=== PATIENT | male | born 1935 | race Caucasian/White ===

== ENCOUNTER → 2017-10-11 09:23 | Outpatient (CLI) | payer BC, SELFPAY ==
[2017-10-11 10:08] LABS: Hemoglobin A1C% w Est Avg Glu 6.1 % (4.0-6.0)
== END ==
PROVIDERS: PCP Family Medicine; Visit Provider Family Medicine
DX: R73.9 Hyperglycemia, unspecified (principal)
CPT/HCPCS: 36415; 83036

== ENCOUNTER → 2018-01-26 11:58 | Outpatient (CLI) | payer BC, SELFPAY ==
--- NOTE | 2018-01-26 11:59 | DI.RAD.S_ITS ---
PROCEDURE: XR KNEE RT 3V INDICATIONS: ant knee pain TECHNIQUE: 3 views of the knee were acquired. COMPARISON: None. FINDINGS: Bones: No fractures or dislocations. No suspicious bony lesions. Mild medial joint space narrowing, diffuse degenerative spurring and subchondral sclerosis. Subcentimeter loose body projecting in the posterior joint space. Soft tissues: Small joint effusion. No suspicious soft tissue calcifications. Scattered vascular calcifications. IMPRESSION: Mild right knee joint degeneration, most pronounced in the medial compartment. Dictated by: Mark Colby M.D. on 01/26/2018 at 13:01 Approved by: Mark Colby M.D. on 01/26/2018 at 13:05
== END ==
PROVIDERS: Family Provider Family Medicine; PCP Family Medicine; Visit Provider Family Medicine
DX: M25.561 Pain in right knee (principal); M17.11 Unilateral primary osteoarthritis, right knee
CPT/HCPCS: 73562

== ENCOUNTER → 2019-07-23 07:42 | Outpatient (CLI) | payer BC, SELFPAY ==
[2019-07-23 08:08] LABS: Add Manual Diff / Slide Review NO; Basophils Absolute Auto 100 /uL (0-100); Eosinophils Absolute Auto 200 /uL (0-450); Eosinophils Percent Auto 2.3 % (2-4); Hematocrit 45.6 % (41-53); Hemoglobin 15.9 g/dL (13.5-17.5); Lymphocytes Absolute Auto 1700 /uL (1100-4500); Lymphocytes Percent Auto 21.8 % (25-40); Mean Corpuscular HGB Conc 34.9 % (30-36); Mean Corpuscular Hemoglobin 31.8 PG (26-34); Mean Corpuscular Volume 91.1 fL (80-100); Monocytes Absolute Auto 600 /uL (0-900); Neutrophils Absolute Auto 5100 /uL (1500-7000); Neutrophils Percent Auto 66.9 % (50-75); Platelet Count 234 X10^3/uL (150-400); Red Blood Cell Count 5.01 X10^6/uL (4.5-5.9); Red Cell Distribution Width 12.9 % (11.6-14.8); White Blood Cell Count 7.6 X10^3/uL (4.5-11.0)
[2019-07-23 08:21] LABS: Alanine Aminotransferase 21 IU/L (<50); Albumin 4.2 g/dL (3.5-5.0); Albumin Globulin Ratio 1.4 (1.0-2.8); Alkaline Phosphatase 60 U/L (38-126); Aspartate Aminotransferase 31 IU/L (17-59); BUN Creatinine Ratio 27.2 (6-22); Bilirubin Total 0.8 mg/dL (0.2-1.3); Blood Urea Nitrogen 22 mg/dL (9-20); Calcium 9.6 mg/dL (8.4-10.2); Carbon Dioxide 32 mmol/L (22-32); Chloride 100 mmol/L (98-107); Cholesterol 166 mg/dL (140-199); Estimated Glomerular Filt Rate > 60.0 mL/min (>60); Globulin 3.1 g/dL (1.7-4.1); Glucose 159 mg/dL (80-110); HDL Cholesterol 40 mg/dL (40-60); HEMOLYSIS < 15 (0-50); LDL Cholesterol Calculated 107 mg/dL (<100); Sodium 140 mmol/L (137-145); Total Protein 7.3 g/dL (6.3-8.2); Triglycerides 96 mg/dL (35-150); Uric Acid 7.8 mg/dL (3.5-8.5)
[2019-07-23 08:26] LABS: Hemoglobin A1C% w Est Avg Glu 6.9 % (4.0-6.0)
[2019-07-23 08:58] LABS: Thyroid Stimulating Hormone 2.82 uIU/mL (0.47-4.68)
== END ==
PROVIDERS: Family Provider Family Medicine; PCP Family Medicine; Referring Provider Family Medicine; Visit Provider Family Medicine
DX: E11.9 Type 2 diabetes mellitus without complications (principal)
CPT/HCPCS: 36415; 80053; 80061; 83036; 84443; 84550; 85025

== ENCOUNTER → 2019-09-23 07:03 | Outpatient (CLI) | payer BC, SELFPAY ==
[2019-09-23 07:47] LABS: Hemoglobin A1C% w Est Avg Glu 6.5 % (4.0-6.0)
== END ==
PROVIDERS: Family Provider Family Medicine; PCP Family Medicine; Referring Provider Family Medicine; Visit Provider Family Medicine
DX: E11.9 Type 2 diabetes mellitus without complications (principal); R73.09 Other abnormal glucose
CPT/HCPCS: 36415; 83036

== ENCOUNTER → 2019-11-25 07:14 | Outpatient (CLI) | payer BC, SELFPAY ==
[2019-11-25 08:23] LABS: Hemoglobin A1C% w Est Avg Glu 6.2 % (4.0-6.0)
== END ==
PROVIDERS: Family Provider Family Medicine; PCP Family Medicine; Referring Provider Family Medicine; Visit Provider Family Medicine
DX: R89.9 Unspecified abnormal finding in specimens from other organs, systems and tissues (principal)
CPT/HCPCS: 36415; 83036

== ENCOUNTER → 2020-01-10 08:29 | Outpatient (CLI) | payer BC, SELFPAY ==
--- NOTE | 2020-01-10 08:31 | DI.MRI.S_ITS ---
PROCEDURE: MR BRAIN (IAC) WWO CON INDICATIONS: Unspecified sensorineural hearing loss TECHNIQUE: Noncontrast sagittal T1 spin echo, axial FLAIR, axial gradient echo, axial diffusion and ADC through the brain. Axial thin-slice 3D CISS, coronal TruFISP, axial T1 spin echo with fat saturation through the internal auditory canals. After the administration of contrast, thin slice axial and coronal T1 spin echo with fat saturation through the internal auditory canals, and axial T1 spin echo with fat saturation through the brain. COMPARISON: None. FINDINGS: Image quality: Excellent. Cerebellopontine angles: No cerebellopontine angle masses. Inner ear structures appear normally formed. No suspicious enhancement in the internal auditory canal or along the course of the 7th cranial nerve. CSF spaces: Ventricles are normal in size and shape. No extra-axial fluid collections. Basal cisterns are patent. Brain: Moderate global cerebral volume loss and advanced chronic microvascular ischemic change. No intracranial bleeds or mass effects. Merritt-white matter interface is intact. No abnormal intracranial enhancement. Diffusion weighted images demonstrate no acute ischemic insults. Brainstem appears normal. Normal intravascular flow voids are present. Skull and face: Calvarial marrow signal is normal. Orbits appear normal. Sinuses: Sinuses and mastoids are clear. IMPRESSION: No findings to explain hearing loss. Specifically, no cerebellopontine angle or internal auditory canal mass. Normal MR appearance of the inner ear structures. No siderosis. Global cerebral volume loss and chronic microvascular ischemic changes, both advanced. Dictated by: Brendon Barnes M.D. on 01/10/2020 at 9:38 Approved by: Brendon Barnes M.D. on 01/10/2020 at 9:41
== END ==
PROVIDERS: Family Provider Family Medicine; PCP Family Medicine; Referring Provider Otolaryngology; Visit Provider Otolaryngology
DX: H90.5 Unspecified sensorineural hearing loss (principal); H93.13 Tinnitus, bilateral
CPT/HCPCS: 70553

== ENCOUNTER → 2020-04-10 07:06 | Outpatient (CLI) | payer BC, SELFPAY ==
[2020-04-10 07:41] LABS: Hemoglobin A1C% w Est Avg Glu 6.4 % (4.0-6.0)
[2020-04-10 08:01] LABS: Alanine Aminotransferase 19 IU/L (<50); Albumin 3.7 g/dL (3.5-5.0); Albumin Globulin Ratio 1.5 (1.0-2.8); Alkaline Phosphatase 59 U/L (38-126); Aspartate Aminotransferase 33 IU/L (17-59); BUN Creatinine Ratio 21.4 (6-22); Bilirubin Total 0.6 mg/dL (0.2-1.3); Blood Urea Nitrogen 15 mg/dL (9-20); Calcium 9.1 mg/dL (8.4-10.2); Carbon Dioxide 31 mmol/L (22-32); Chloride 102 mmol/L (98-107); Cholesterol 167 mg/dL (140-199); Estimated Glomerular Filt Rate > 60.0 mL/min (>60); Globulin 2.5 g/dL (1.7-4.1); Glucose 129 mg/dL (80-110); HDL Cholesterol 53 mg/dL (40-60); HEMOLYSIS < 15 (0-50); LDL Cholesterol Calculated 92 mg/dL (<100); Potassium 3.4 mmol/L (3.4-5.1); Sodium 136 mmol/L (137-145); Total Protein 6.2 g/dL (6.3-8.2); Triglycerides 109 mg/dL (35-150)
[2020-04-10 08:10] LABS: Creatinine Urine Random 115.5 mg/dL
[2020-04-10 08:14] LABS: Microalbumi Creatinin Ratio Ur 25.1 ug/mg CR (<30); Microalbumin Urine Random 2.9 mg/dL (0-1.6)
== END ==
PROVIDERS: Family Provider Family Medicine; PCP Family Medicine; Referring Provider Family Medicine; Visit Provider Family Medicine
DX: E11.9 Type 2 diabetes mellitus without complications (principal); I10 Essential (primary) hypertension; Z13.220 Encounter for screening for lipoid disorders
CPT/HCPCS: 36415; 80053; 80061; 82043; 82570; 83036

== ENCOUNTER → 2020-04-24 12:23 | Outpatient (CLI) | payer BC, SELFPAY ==
[2020-04-24] MEDS: COVID-19 VACC, Ad26(JANSSEN)/PF 0.5 ML IM (12:46)
== END ==
PROVIDERS: Family Provider Family Medicine; PCP Family Medicine; Visit Provider Internal Medicine
DX: Z23 Encounter for immunization (principal)
CPT/HCPCS: 0031A; 91303

== ENCOUNTER 2020-08-30 13:13 | Inpatient (IN) | payer BC, MEDICARE, SELFPAY ==
[2020-08-30] VITALS (10 sets, daily range): BP systolic 138–201; BP diastolic 60–93; PULSE 69–89; RESP 12–23; TEMP 36.2–36.8; O2SAT 93–98; BMI 27.1
--- NOTE | 2020-08-30 13:44 | ED_ITS ---
HPI - General Adult General Chief complaint: Abdominal Pain Stated complaint: N/V/D for 5 days. Sent by [facility] Time Seen by Provider: 08/30/20 13:34 Source: patient History of Present Illness HPI narrative: Patient is an 84-year-old male who is sent over from the walk-in clinic for evaluation of approximately 5 days of nausea vomiting and diarrhea. He states that he has been vomiting at least 1 time a day for the past couple days. Has had some lower abdominal discomfort that seems to have improved. Is also having some diarrhea. No recent antibiotics. No recent travel. No prior abdominal surgeries. No chest pain. No shortness of breath. Has not tried a nything for symptoms prior to arrival. Has also had a decreased appetite. No fevers Related Data Home Medications Medication Instructions Recorded Confirmed turmeric PO 01/20/20 04/15/20 Previous Rx's Medication Instructions Recorded triamterene 37.5 1 tab PO DAILY #90 tab 04/17/20 mg-hydrochlorothiazide 25 mg tablet Allergies Allergy/AdvReac Type Severity Reaction Status Date / Time Penicillins [PENICILLINS] Allergy Severe Hives Verified 08/30/20 13:26 Review of Systems Constitutional Constitutional: Denies fever(s) Eyes Eyes: Reports system reviewed and no additional complaints, except as documented Cardiovascular Cardiovascular: Reports system reviewed and no additional complaints, except as documented Respiratory Respiratory: Reports system reviewed and no additional complaints, except as documented Gastrointestinal Gastrointestinal: Reports as per HPI Genitourinary Genitourinary: Denies dysuria Musculoskeletal Musculoskeletal: Reports system reviewed and no additional complaints, except as documented Integumentary/Breasts Skin/Breast: Denies rash Neurologic Neurologic: Reports system reviewed and no additional complaints, except as documented Psychiatric Psychiatric: Reports system reviewed and no additional complaints, except as documented Hematologic/Lymphatic On Anticoagulants: No Allergic/Immunologic Allergic/Immunologic: Reports system reviewed and no additional complaints, except as documented Patient History Medical History Ankylosing spondylitis (~1970) Cataracts, bilateral Chicken pox (~194) Diverticular disease Fractures Hearing loss Hypertension Kidney stones Measles (~1940) Mumps (~1939) Partial blindness (~1938) Prostate cancer Stiff neck Tinnitus Vision disorder Well adult exam Surgical History (Updated 01/25/18 @ 21:50 by Brianne Ayon) Anesthesia History of cataract removal with insertion of prosthetic lens (~2013) History of eye surgery (~2004) History of lithotripsy (~1996) History of prostatectomy (~2003) History of shoulder surgery (~1953) History of tonsillectomy (~1939) Family History (Updated 07/03/14 @ 00:00 by Conversion Provider) Brother Diabetes mellitus Father Cancer Grandmother Cancer Mother Cancer Sister Cancer Social History Smoking Status: Former smoker Tobacco: How many years used: 16 alcohol intake: current (~2 drinks per day ) substance use type: does not use Smoking Status: Former smoker alcohol intake frequency: a few times a week Substance Use Type: does not use Exam Initial Vital Signs Initial Vital Signs: Vital Signs Temperature 97.1 F L 08/30/20 13:22 Pulse Rate 85 08/30/20 13:22 Respiratory Rate 12 08/30/20 13:22 Blood Pressure 177/80 H 08/30/20 13:22 Pulse Oximetry 98 08/30/20 13:22 Const General: cooperative and healthy appearing [facility] Head: normal to inspection and normocephalic Eyes General: appearance normal, both eyes and all related structures Chest Chest: No tenderness Resp Effort & Inspection: normal respiratory effort Auscultation: clear to auscultation bilaterally Cardio Rate: regular rate Rhythm: regular rhythm GI Inspection: distended Palpation: soft and No tender Skin General: no rashes or lesions noted Neuro General: patient alert, patient awake, patient oriented x3 and moves all extremities Extrem General: normal to inspection and capillary refill normal Psych Appearance: grossly normal and well kempt Course Orders Ordered: ED Orders 08/30/20 13:30 Complete Blood Count AUTO DIFF Stat Comprehensive Metabolic Panel Stat Lactate (Lactic Acid) Stat Lipase Stat Troponin & CK Cardiac Panel Stat 08/30/20 13:45 CT abdomen pelvis w con Stat EKG-12 Lead Stat 08/30/20 15:23 COVID19 - ADMIT (PRIMER INSERTING MACHINE ADJUSTER swab/PCR) Stat 08/30/20 15:24 Consult to General Surgery Stat Sodium Chloride (Normal Saline 0.9%) 1,000 mls @ 500 mls/hr IV BOLUS ONE Stop: 08/30/20 15:43 Last Admin: 08/30/20 13:51 Dose: 500 mls/hr Documented by: DEENA Vital Signs Vital signs: Vital Signs - 8 hr 08/30/20 13:22 08/30/20 14:24 08/30/20 14:25 Temperature 97.1 F L Pulse Rate 85 89 86 Respiratory Rate 12 22 Blood Pressure 177/80 H 201/93 H Pulse Oximetry 98 93 98 08/30/20 14:37 08/30/20 14:40 08/30/20 15:00 Temperature Pulse Rate 87 81 73 Respiratory Rate 23 18 Blood Pressure 188/78 H 158/70 H Pulse Oximetry 98 98 96 Medical Decision Making Lab Data Lab results reviewed: Yes I reviewed the patient's lab results. Result diagrams: 08/30/20 13:30 08/30/20 13:30 Labs: Lab Results 08/30/20 08/30/20 08/30/20 Range/Units 13:30 13:30 13:30 WBC 9.6 (4.5-11.0) X10^3/uL RBC 4.97 (4.5-5.9) X10^6/uL Hgb 15.6 (13.5-17.5) g/dL Hct 44.4 (41-53) % MCV 89.3 (80-100) fL MCH 31.4 (26-34) PG MCHC 35.1 (30-36) % RDW 12.9 (11.6-14.8) % Plt Count 251 (150-400) X10^3/uL Neut % (Auto) 74.3 (50-75) % Lymph % (Auto) 10.5 L (25-40) % [place] % (Auto) 14.7 H (3-14) % Eos % (Auto) 0.3 L (2-4) % Baso % (Auto) 0.2 (0-2) % Neut # (Auto) 7100 H (3175-5436) /uL Lymph # (Auto) 1000 L (1388-1237) /uL [place] # (Auto) 1400 H (0-900) /uL Eos # (Auto) 0 (0-450) /uL Baso # (Auto) 0 (0-100) /uL Sodium 127 L (137-145) mmol/L Potassium 3.5 (3.4-5.1) mmol/L Chloride 90 L (98-107) mmol/L Carbon Dioxide 28 (22-32) mmol/L BUN 24 H (9-20) mg/dL Creatinine 0.87 (0.66-1.25) mg/dL Estimated GFR > 60.0 (>60) mL/min BUN/Creatinine Ratio 27.6 H (6-22) Glucose 154 H (80-110) mg/dL Lactate 1.0 (0.7-2.1) mmol/L Calcium 9.5 (8.4-10.2) mg/dL Total Bilirubin 1.2 (0.2-1.3) mg/dL AST 29 (17-59) IU/L ALT 19 (<50) IU/L Alkaline Phosphatase 62 (38-126) U/L Total Creatine Kinase 57 (55-170) U/L CK-MB (CK-2) TNP CK-MB (CK-2) Rel Index TNP Troponin I < 0.012 (0.01-0.034) ng/mL Total Protein 6.9 (6.3-8.2) g/dL Albumin 3.9 (3.5-5.0) g/dL Globulin 3.0 (1.7-4.1) g/dL Albumin/Globulin Ratio 1.3 (1.0-2.8) Lipase 113 (23-300) U/L Urine Dip Bedside Urine Glucose Negative Bedside Urine Bilirubin - Negative Bedside Urine Ketone - Negative Urine Specific [place] 1.010 Bedside Urine Occult Blood - Negative Bedside Urine pH 6 Bedside Urine Protein - Negative Bedside Urine Urobilinogen - Negative Bedside Urine Nitrite - Negative Bedside Urine Leukocytes - Negative Esterase Point of care testing: Urine Dip Bedside Urine Glucose Negative Bedside Urine Bilirubin - Negative Bedside Urine Ketone - Negative Urine Specific [place] 1.010 Bedside Urine Occult Blood - Negative Bedside Urine pH 6 Bedside Urine Protein - Negative Bedside Urine Urobilinogen - Negative Bedside Urine Nitrite - Negative Bedside Urine Leukocytes - Negative Esterase Imaging Data CT scan - abdomen/pelvis: Radiologist's Impression: [address] [id number] Scan ReportSigned Patient: Andrews Baugh MMR#: [id number]: 5Acct:[id number]/Sex: 84 / MDate of Service: 08/30/20Loc: EDAccession Number: [id number] Procedure: CT abdomen pelvis w con Ordering Provider: Deepak Person D.O. PROCEDURE: CT ABDOMEN PELVIS W CON INDICATIONS: 84-year-old male with Generalized abdominal pain with vomiting and history of prostate cancer/prostatectomy TECHNIQUE: After the administration of intravenous contrast, axial sections acquired from the lung bases to the pubic symphysis. Coronal and sagittal reformats were performed. For radiation dose reduction, the following was used: automated exposure control, adjustment of mA and/or kV according to patient size. COMPARISON: None. FINDINGS: Lower thorax: The lung bases are clear. Heart size normal. No hiatal hernia. Liver: Normal in size and attenuation. No contour deformity present. Small left hepatic cyst measures 1.2 cm. Biliary system: No calcified cholelithiasis or pericholecystic inflammation. No intra or extrahepatic bile duct dilatation. Pancreas: Unremarkable without mass or inflammation evident. Spleen: Normal in size and density. Adrenals: Normal morphology and density. Reproductive system: Prostatectomy with multiple surgical clips present. Urinary system: Normal renal size and attenuation. No renal calculi, hydronephrosis, or solid mass present. Urinary bladder unremarkable. Gastrointestinal system: Proximal small bowel is fluid distended up to 3.5 cm, and the distal small bowel is decompressed. There is a transition in the left mid abdomen on coronal image 06/09 and axial with there is focal bowel wall edema and unusual hyperdensity. No evidence of pneumatosis. Additionally, multiple diverticula arise from the entire colon without evidence of focal diverticulitis Appendix: No findings to suggest acute appendicitis. Peritoneal spaces: No mesenteric or retroperitoneal adenopathy. No free air. No free fluid. several retroperitoneal surgical clips present in the pelvis and bilateral inguinal canals Vasculature: Aortic atherosclerotic vascular calcification noted without evidence of aneurysm. Musculoskeletal: Degenerative disc disease and arthropathy noted in lower lumbar spine. No lytic or blastic osseous lesion is. Degenerative L4-5 anterior listhesis noted. Abdominal wall intact without evidence of ventral or inguinal hernias. There is ankylosis of the sacroiliac joints. IMPRESSION: 1. Small bowel obstruction. Short transition is associated with an edematous loop of small bowel in the left flank which may reflect venous congestion from obstruction or focal enteritis. Consider short-term interval follow-up 2. Advanced diverticulosis predominantly involves the descending and sigmoid colon without evidence of focal diverticulitis. 3. 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 on 08/30/2020 at 13:57 Approved by: Frankie Ball M.D. on 08/30/2020 at 14:15 ECG Data Attestation: I personally reviewed and interpreted this ECG as follows: Interpretation: Sinus rhythm Ventricular rate is 74 First degree AV block. Oval to 3 0 milliseconds Right bundle branch block Left axis deviation LVH Normal QTC No ST T wave changes MDM Narrative Medical decision making narrative: 5 days of nausea vomiting and diarrhea. Does have distended abdomen but has minimal tenderness to palpation. Is afebrile. CT scan shows small bowel obstruction. Discussed case with Dr. Alegria with General surgery who will consult on the patient. I then discussed the case with Dr. Roman with Internal Medicine who will admit for further evaluation treatment. I did discuss the CT scan findings with the patient in the need for admission he expressed understanding. Discharge Plan Departure Patient Disposition: Home Clinical Impression: Small bowel obstruction Prescriptions: No Action triamterene-hydrochlorothiazid 37.5-25 mg tablet 1 tab PO DAILY Qty: 90 RF: 1 turmeric PO RF: 0 Referrals: Osman Levine DO [Primary Care Provider] -
[2020-08-30] MEDS: SODIUM CHLORIDE 0.9% 1,000 ML 500 ML IV (13:51)
[2020-08-30 13:56] LABS: Add Manual Diff / Slide Review NO; Basophils Absolute Auto 0 /uL (0-100); Basophils Percent Auto 0.2 % (0-2); Eosinophils Absolute Auto 0 /uL (0-450); Eosinophils Percent Auto 0.3 % (2-4); Hematocrit 44.4 % (41-53); Hemoglobin 15.6 g/dL (13.5-17.5); Lymphocytes Absolute Auto 1000 /uL (1100-4500); Lymphocytes Percent Auto 10.5 % (25-40); Mean Corpuscular HGB Conc 35.1 % (30-36); Mean Corpuscular Hemoglobin 31.4 PG (26-34); Mean Corpuscular Volume 89.3 fL (80-100); Monocytes Absolute Auto 1400 /uL (0-900); Monocytes Percent Auto 14.7 % (3-14); Neutrophils Absolute Auto 7100 /uL (1500-7000); Neutrophils Percent Auto 74.3 % (50-75); Platelet Count 251 X10^3/uL (150-400); Red Blood Cell Count 4.97 X10^6/uL (4.5-5.9); Red Cell Distribution Width 12.9 % (11.6-14.8); White Blood Cell Count 9.6 X10^3/uL (4.5-11.0)
[2020-08-30 14:00] LABS: Alanine Aminotransferase 19 IU/L (<50); Albumin 3.9 g/dL (3.5-5.0); Albumin Globulin Ratio 1.3 (1.0-2.8); Alkaline Phosphatase 62 U/L (38-126); Aspartate Aminotransferase 29 IU/L (17-59); BUN Creatinine Ratio 27.6 (6-22); Bilirubin Total 1.2 mg/dL (0.2-1.3); Blood Urea Nitrogen 24 mg/dL (9-20); Calcium 9.5 mg/dL (8.4-10.2); Carbon Dioxide 28 mmol/L (22-32); Chloride 90 mmol/L (98-107); Creatine Kinase 57 U/L (55-170); Estimated Glomerular Filt Rate > 60.0 mL/min (>60); Glucose 154 mg/dL (80-110); HEMOLYSIS < 15 (0-50); Lipase 113 U/L (23-300); Potassium 3.5 mmol/L (3.4-5.1); Sodium 127 mmol/L (137-145); Total Protein 6.9 g/dL (6.3-8.2)
[2020-08-30 14:11] LABS: Troponin I < 0.012 ng/mL (0.01-0.034)
[2020-08-30 16:41] LABS: COVID19 - ADMIT (NP swab/PCR) Negative (Negative)
[2020-08-30] MEDS: LACTATED RINGERS 1,000 ML 150 ML IV (17:12)
--- NOTE | 2020-08-30 17:15 | P.HP_ITS ---
History of Present Illness History of Present Illness Date Patient Seen: 08/30/20 Time Patient Seen: 15:00 Chief complaint: N/V/D for 5 days. Sent by [facility] Narrative: Mr. Baugh is an 84M with PMH ankylosing spondylitis, HTN, diet controlled DM, history of prostate cancer s/p prostatectomy, who comes in with abdominal pain, nausea and vomiting. He states his symptoms began six days ago, last Monday, where his stomach felt funny. He then developed vomiting, abdo chaitanya pain and nausea. He has had intermittent diarrhea, but last bowel movement was two days ago. He has decreased appetite. No fevers/chills. No abdominal surgeries. No significant weight loss. Because of this he went to a walk in clinic who sent him to the hospital. In the ED, vitals were normal aside from hypertension. Labs notable for WBC 9.6, Na 127, creatinine 0.87, lactate 1.0, LFTs unremarkable, lipase normal, UA unremarkable. CT scan of his abdomen noted that his proximal small bowel is distended with fluid with a transition point in the mid abdomen with focal bowal wall edema, and a hyperdensity noted which was consistent with obstruction. He was made NPO given IV fluids, pain medications, surgery was consulted and he was admitted for further treatment. Patient History Medical History Ankylosing spondylitis (~1969) Cataracts, bilateral Chicken pox (~1944) Diverticular disease Fractures Hearing loss Hypertension Kidney stones Measles (~1939) Mumps (~193) Partial blindness (~193) Prostate cancer Stiff neck Tinnitus Vision disorder Well adult exam Surgical History Anesthesia History of cataract removal with insertion of prosthetic lens (~2013) History of eye surgery (~2004) History of lithotripsy (~1996) History of prostatectomy (~2003) History of shoulder surgery (~1953) History of tonsillectomy (~1939) Family & Social History Family History Brother Diabetes mellitus Father Cancer Grandmother Cancer Mother Cancer Sister Cancer Safety & Behavioral: Feels Safe in Current Yes Environment Been Physically Hurt or No Threatened By a Person Tobacco & Substance use: Smoking Status Former smoker alcohol intake current alcohol intake frequency a few times a week Substance Use Type does not use Meds Home Medications and Allergies Home Medications Medication Instructions Recorded Confirmed Type turmeric PO 01/20/20 04/15/20 History triamterene 37.5 1 tab PO DAILY #90 tab 04/17/20 08/30/20 Rx mg-hydrochlorothiazide 25 mg tablet Allergies Allergy/AdvReac Type Severity Reaction Status Date / Time Penicillins [PENICILLINS] Allergy Severe Hives Verified 08/30/20 13:26 Review of Systems Review of Systems Narrative: 14 systems reviewed and negative aside from what is noted in HPI Exam Vital Signs (past 8 hours): - 08/30/20 13:22 08/30/20 14:24 08/30/20 14:25 Temperature 97.1 F L Pulse Rate 85 89 86 Respiratory Rate 12 22 Blood Pressure 177/80 H 201/93 H Pulse Oximetry 98 93 98 08/30/20 14:37 08/30/20 14:40 08/30/20 15:00 Temperature Pulse Rate 87 81 73 Respiratory Rate 23 18 Blood Pressure 188/78 H 158/70 H Pulse Oximetry 98 98 96 08/30/20 16:10 Temperature 98.3 F Pulse Rate 75 Respiratory Rate 18 Blood Pressure 176/76 H Pulse Oximetry 97 Oxygen Delivery Method Room Air Narrative Exam Narrative: GEN: no acute distress HEENT: PERRL, moist mucous membranes NECK: no JVD, trachea midline CV: regular rate and rhythm with no murmurs PULM: clear bliaterally with no wheezes, rhonchi, rales ABD: soft, distended, mild tenderness to palpation below with umbilicus, no rebound/guarding, bowel sounds diminished EXT: warm and well perfused with no edema SKIN: no rashes noted NEURO: awake alert and oriented x3, moving all extremities and no gross focal deficits noted PSYCH: pleasant, cooperative Objective Labs Result Diagrams: 08/30/20 13:30 08/30/20 13:30 Labs: Laboratory Results - last 24 hr 08/30/20 08/30/20 08/30/20 13:30 13:30 13:30 WBC 9.6 RBC 4.97 Hgb 15.6 Hct 44.4 MCV 89.3 MCH 31.4 MCHC 35.1 RDW 12.9 Plt Count 251 Neut % (Auto) 74.3 Lymph % (Auto) 10.5 L [place] % (Auto) 14.7 H Eos % (Auto) 0.3 L Baso % (Auto) 0.2 Neut # (Auto) 7100 H Lymph # (Auto) 1000 L [place] # (Auto) 1400 H Eos # (Auto) 0 Baso # (Auto) 0 Sodium 127 L Potassium 3.5 Chloride 90 L Carbon Dioxide 28 BUN 24 H Creatinine 0.87 Estimated GFR > 60.0 BUN/Creatinine Ratio 27.6 H Glucose 154 H Lactate 1.0 Calcium 9.5 Total Bilirubin 1.2 AST 29 ALT 19 Alkaline Phosphatase 62 Total Creatine Kinase 57 CK-MB (CK-2) TNP CK-MB (CK-2) Rel Index TNP Troponin I < 0.012 Total Protein 6.9 Albumin 3.9 Globulin 3.0 Albumin/Globulin Ratio 1.3 Lipase 113 SARS-CoV-2 (PCR) 08/30/20 15:39 WBC RBC Hgb Hct MCV MCH MCHC RDW Plt Count Neut % (Auto) Lymph % (Auto) [place] % (Auto) Eos % (Auto) Baso % (Auto) Neut # (Auto) Lymph # (Auto) [place] # (Auto) Eos # (Auto) Baso # (Auto) Sodium Potassium Chloride Carbon Dioxide BUN Creatinine Estimated GFR BUN/Creatinine Ratio Glucose Lactate Calcium Total Bilirubin AST ALT Alkaline Phosphatase Total Creatine Kinase CK-MB (CK-2) CK-MB (CK-2) Rel Index Troponin I Total Protein Albumin Globulin Albumin/Globulin Ratio Lipase SARS-CoV-2 (PCR) Negative Assessment & Plan Assessment & Plan narrative: Mr. Baugh is an 84M with pmh of ankylosing spondilitis, HTN, history of prostate cancer who presents with small bowel obstruction. 1. Small bowel obstruction, acute -etiology possible from infection, mass, less likely adhesions, less likely IBD as he has not had extra-axial manifestations of his ankylosing spondilitis -for now will keep him NPO -IV fluid while NPO -IV morphine for pain control -for now will not order ng tube as patient relatively mild symptoms, but may need if develops worse pain, nausea, distention -surgery consulted by ED physician, appreciate recs 2. Ankylosing spondilitis, chronic -asymptomatic currently -doubt causing his symptoms 3. HTN -hold anti-hypertensives until tolerating POs 4. DM, Type 2 -diet controlled -follow up as outpatient CODE: Full, proxy is Melicent IVF: LR at 150cc/hr DVT ppx: Lovenox sc DIET: NPO Quality MIPS - Admit I confirm the patient?s Advance Care Plan is present, Code status is documented, Surrogate decision maker is in patient?s record [If Yes, STOP here]: Yes
[2020-08-31] VITALS (7 sets, daily range): BP systolic 130–166; BP diastolic 60–78; PULSE 64–78; RESP 16–18; TEMP 36.1–36.6; O2SAT 93–98
[2020-08-31 05:33] LABS: Add Manual Diff / Slide Review NO; Basophils Absolute Auto 0 /uL (0-100); Basophils Percent Auto 0.6 % (0-2); Eosinophils Absolute Auto 0 /uL (0-450); Eosinophils Percent Auto 0.5 % (2-4); Hematocrit 39.8 % (41-53); Hemoglobin 13.9 g/dL (13.5-17.5); Lymphocytes Absolute Auto 1200 /uL (1100-4500); Lymphocytes Percent Auto 15.9 % (25-40); Mean Corpuscular HGB Conc 34.9 % (30-36); Mean Corpuscular Hemoglobin 31.3 PG (26-34); Mean Corpuscular Volume 89.5 fL (80-100); Monocytes Absolute Auto 1400 /uL (0-900); Monocytes Percent Auto 17.9 % (3-14); Neutrophils Absolute Auto 4900 /uL (1500-7000); Neutrophils Percent Auto 65.1 % (50-75); Platelet Count 224 X10^3/uL (150-400); Red Blood Cell Count 4.45 X10^6/uL (4.5-5.9); Red Cell Distribution Width 12.5 % (11.6-14.8); White Blood Cell Count 7.6 X10^3/uL (4.5-11.0)
[2020-08-31 05:43] LABS: BUN Creatinine Ratio 25.3 (6-22); Blood Urea Nitrogen 19 mg/dL (9-20); Calcium 8.5 mg/dL (8.4-10.2); Carbon Dioxide 29 mmol/L (22-32); Chloride 98 mmol/L (98-107); Estimated Glomerular Filt Rate > 60.0 mL/min (>60); Glucose 97 mg/dL (80-110); HEMOLYSIS 33 (0-50); Potassium 3.5 mmol/L (3.4-5.1); Sodium 132 mmol/L (137-145)
[2020-08-31] MEDS: ENOXAPARIN 40 MG/0.4 ML SYRINGE SUBCUT (08:50)
--- NOTE | 2020-08-31 09:06 | DI.RAD.S_ITS ---
PROCEDURE: FL SMALL BOWEL FOLLOW THROUGH INDICATIONS: small bowel obstruction. Perform with gastrografin COMPARISON: [facility], CT, CT ABDOMEN PELVIS W CON, 08/30/2020, 14:12. FINDINGS: KUB: Preprocedural windows and doors installer film redemonstrates an obstructive bowel gas pattern as noted on comparison CT. Multiple dilated loops small bowel as before. No suspicious abdominal calcifications. Visualized solid organ contours appear normal. No suspicious bony abnormalities. Numerous surgical clips project over the bilateral pelvic sidewalls. Small bowel: There is visualization of possible oral contrast in segments of the colon at the 4 hour image. The patient reported bowel movements at that time. The 6 hour images demonstrate definitive oral contrast within colon and rectum. There is persistent but significantly decreased number of distended loops of small bowel in the mid abdomen compared to windows and doors installer KUB image. No evidence for suspicious bowel wall thickening. Mucosal folds are smooth and of normal thickness. No definite strictures, intraluminal masses, or extrinsic mass effects are noted. IMPRESSION: Passage of ingested oral contrast from the stomach through the rectum during the course of the study. Persistent but significantly decreased degree and amount of distended small bowel loops. Dictated by: Zfaar Piper M.D. on 08/31/2020 at 16:36 Approved by: Zafar Piper M.D. on 08/31/2020 at 16:42
--- NOTE | 2020-08-31 09:07 | PM.CN ---
History of Present Illness Consult details Date Patient Seen: 08/31/20 Time Patient Seen: 10:44 Chief complaint: nausea Narrative: 84-year-old man history of prostatectomy, admitted for small-bowel obstruction. Several days of abdominal pain associated nausea emesis abdominal bloating. Last bowel movement 2 days ago, last emesis 24hrs agos. History of prostatectomy. No prior episodes of small-bowel obstruction. At admission 08/31/2011 CT abdomen pelvis- transition point in the mid small bowel no associated free fluid or free air. WBC 8 Meds Home Medications and Allergies Home Medications Medication Instructions Recorded Confirmed Type turmeric See Rx Instructions .ROUTE .COMPLEX 01/20/20 08/31/20 History triamterene 37.5 1 tab PO DAILY #90 tab 04/17/20 08/30/20 Rx mg-hydrochlorothiazide 25 mg tablet Allergies Allergy/AdvReac Type Severity Reaction Status Date / Time Penicillins [PENICILLINS] Allergy Severe Hives Verified 08/30/20 13:26 Review of Systems Review of Systems ROS: Yes All systems reviewed with the patient and are negative except as otherwise documented Exam Vital Signs (past 8 hours): - 08/31/20 03:10 08/31/20 07:30 08/31/20 08:15 Temperature 97.9 F 97.9 F Pulse Rate 78 64 Respiratory Rate 16 18 Blood Pressure 130/64 141/60 H Pulse Oximetry 93 96 97 Oxygen Delivery Method Room Air Oxygen Flow Rate 0 Narrative Exam Narrative: GENERAL-well developed elderly male, no acute distress HEENT-no scleral icterus, hearing intact NECK-no JVD, trachea midline CVS- regular rate, no peripheral edema RESP-unlabored respiratory effort, no audible wheezing GI-no peritonitis, moderately distended nontender, lower midline incision MSK-no cyanosis or clubbing, extremities without deformity SKIN-warm, dry NEURO-alert and oriented, no focal deficits PYSCH-Appropriate mood and affect Objective Labs Result Diagrams: 08/31/20 05:15 08/31/20 05:15 Labs: Laboratory Results - last 24 hr 08/30/20 08/30/20 08/30/20 13:30 13:30 13:30 WBC 9.6 RBC 4.97 Hgb 15.6 Hct 44.4 MCV 89.3 MCH 31.4 MCHC 35.1 RDW 12.9 Plt Count 251 Neut % (Auto) 74.3 Lymph % (Auto) 10.5 L [place] % (Auto) 14.7 H Eos % (Auto) 0.3 L Baso % (Auto) 0.2 Neut # (Auto) 7100 H Lymph # (Auto) 1000 L [place] # (Auto) 1400 H Eos # (Auto) 0 Baso # (Auto) 0 Sodium 127 L Potassium 3.5 Chloride 90 L Carbon Dioxide 28 BUN 24 H Creatinine 0.87 Estimated GFR > 60.0 BUN/Creatinine Ratio 27.6 H Glucose 154 H Lactate 1.0 Calcium 9.5 Total Bilirubin 1.2 AST 29 ALT 19 Alkaline Phosphatase 62 Total Creatine Kinase 57 CK-MB (CK-2) TNP CK-MB (CK-2) Rel Index TNP Troponin I < 0.012 Total Protein 6.9 Albumin 3.9 Globulin 3.0 Albumin/Globulin Ratio 1.3 Lipase 113 SARS-CoV-2 (PCR) 08/30/20 08/31/20 08/31/20 15:39 05:15 05:15 WBC 7.6 RBC 4.45 L Hgb 13.9 Hct 39.8 L MCV 89.5 MCH 31.3 MCHC 34.9 RDW 12.5 Plt Count 224 Neut % (Auto) 65.1 Lymph % (Auto) 15.9 L [place] % (Auto) 17.9 H Eos % (Auto) 0.5 L Baso % (Auto) 0.6 Neut # (Auto) 4900 Lymph # (Auto) 1200 [place] # (Auto) 1400 H Eos # (Auto) 0 Baso # (Auto) 0 Sodium 132 L Potassium 3.5 Chloride 98 Carbon Dioxide 29 BUN 19 Creatinine 0.75 Estimated GFR > 60.0 BUN/Creatinine Ratio 25.3 H Glucose 97 Lactate Calcium 8.5 Total Bilirubin AST ALT Alkaline Phosphatase Total Creatine Kinase CK-MB (CK-2) CK-MB (CK-2) Rel Index Troponin I Total Protein Albumin Globulin Albumin/Globulin Ratio Lipase SARS-CoV-2 (PCR) Negative Assessment & Plan Assessment & Plan narrative: 84M history of prostatectomy admitted with a partial SBO, non toxic. No acute surgical intervention. CT reviewed, transition point no free fluid or air. Recommendations 1. Small bowel follow through-ordered 2. NPO-NGT if recurrent emesis
[2020-08-31] MEDS: LACTATED RINGERS 1,000 ML 150 ML IV ×2 (11:15→18:37)
--- NOTE | 2020-08-31 12:03 | P.PN_ITS ---
Subjective Subjective Date Patient Seen: 08/31/20 Time Patient Seen: 08:00 Interval history: Today he feels improved. His pain in his stomach has nearly resolved. He has no nausea, no vomiting overnight. He says he is not passing gas, and has not had a bowel movement. Exam Vital Signs (past 8 hours): - 08/31/20 07:30 08/31/20 08:15 Temperature 97.9 F Pulse Rate 64 Respiratory Rate 18 Blood Pressure 141/60 H Pulse Oximetry 96 97 Oxygen Delivery Method Room Air Oxygen Flow Rate 0 Narrative Exam Narrative: GEN: no acute distress HEENT: PERRL, moist mucous membranes NECK: no JVD, trachea midline CV: regular rate and rhythm with no murmurs PULM: clear bliaterally with no wheezes, rhonchi, rales ABD: soft, distended, mild tenderness to palpation below with umbilicus, no rebo und/guarding, bowel sounds diminished EXT: warm and well perfused with no edema SKIN: no rashes noted NEURO: awake alert and oriented x3, moving all extremities and no gross focal deficits noted PSYCH: pleasant, cooperative Objective Labs Result Diagrams: 08/31/20 05:15 08/31/20 05:15 Labs: Laboratory Results - last 24 hr 08/30/20 08/30/20 08/30/20 13:30 13:30 13:30 WBC 9.6 RBC 4.97 Hgb 15.6 Hct 44.4 MCV 89.3 MCH 31.4 MCHC 35.1 RDW 12.9 Plt Count 251 Neut % (Auto) 74.3 Lymph % (Auto) 10.5 L [place] % (Auto) 14.7 H Eos % (Auto) 0.3 L Baso % (Auto) 0.2 Neut # (Auto) 7100 H Lymph # (Auto) 1000 L [place] # (Auto) 1400 H Eos # (Auto) 0 Baso # (Auto) 0 Sodium 127 L Potassium 3.5 Chloride 90 L Carbon Dioxide 28 BUN 24 H Creatinine 0.87 Estimated GFR > 60.0 BUN/Creatinine Ratio 27.6 H Glucose 154 H Lactate 1.0 Calcium 9.5 Total Bilirubin 1.2 AST 29 ALT 19 Alkaline Phosphatase 62 Total Creatine Kinase 57 CK-MB (CK-2) TNP CK-MB (CK-2) Rel Index TNP Troponin I < 0.012 Total Protein 6.9 Albumin 3.9 Globulin 3.0 Albumin/Globulin Ratio 1.3 Lipase 113 SARS-CoV-2 (PCR) 08/30/20 08/31/20 08/31/20 15:39 05:15 05:15 WBC 7.6 RBC 4.45 L Hgb 13.9 Hct 39.8 L MCV 89.5 MCH 31.3 MCHC 34.9 RDW 12.5 Plt Count 224 Neut % (Auto) 65.1 Lymph % (Auto) 15.9 L [place] % (Auto) 17.9 H Eos % (Auto) 0.5 L Baso % (Auto) 0.6 Neut # (Auto) 4900 Lymph # (Auto) 1200 [place] # (Auto) 1400 H Eos # (Auto) 0 Baso # (Auto) 0 Sodium 132 L Potassium 3.5 Chloride 98 Carbon Dioxide 29 BUN 19 Creatinine 0.75 Estimated GFR > 60.0 BUN/Creatinine Ratio 25.3 H Glucose 97 Lactate Calcium 8.5 Total Bilirubin AST ALT Alkaline Phosphatase Total Creatine Kinase CK-MB (CK-2) CK-MB (CK-2) Rel Index Troponin I Total Protein Albumin Globulin Albumin/Globulin Ratio Lipase SARS-CoV-2 (PCR) Negative [facility] Medical History Ankylosing spondylitis (~1969) Cataracts, bilateral Chicken pox (~1944) Diverticular disease Fractures Hearing loss Hypertension Kidney stones Measles (~1939) Mumps (~193) Partial blindness (~193) Prostate cancer Stiff neck Tinnitus Vision disorder Well adult exam Surgical History Anesthesia History of cataract removal with insertion of prosthetic lens (~2013) History of eye surgery (~2004) History of lithotripsy (~1996) History of prostatectomy (~2003) History of shoulder surgery (~1953) History of tonsillectomy (~1939) Family History Brother Diabetes mellitus Father Cancer Grandmother Cancer Mother Cancer Sister Cancer Social History household members: spouse Smoking Status: Former smoker Tobacco: How many years used: 16 alcohol intake: current substance use type: does not use Assessment & Plan Assessment & Plan narrative: kathy Baugh is an 84M with pmh of ankylosing spondilitis, HTN, history of prostate cancer who presents with small bowel obstruction. 1. Small bowel obstruction, acute -etiology possible from infection, mass, adhesions, less likely IBD as he has not had extra-axial manifestations of his ankylosing spondilitis -for now will keep him NPO -IV fluid while NPO -IV morphine for pain control -for now will not order ng tube as patient relatively mild symptoms, but may need if develops worse pain, nausea, distention -surgery consulted by ED physician, appreciate recs, plan for small bowel follow through 2. Ankylosing spondilitis, chronic -asymptomatic currently -doubt causing his symptoms 3. HTN -hold anti-hypertensives until tolerating POs 4. DM, Type 2 -diet controlled -follow up as outpatient CODE: Full, proxy is Melicent IVF: LR at 150cc/hr DVT ppx: Lovenox sc DIET: NPO Quality VTE Deep Vein Thrombosis/Pulmonary Embolism Present on Admission: No
--- NOTE | 2020-08-31 12:38 | PC.NURSE ---
Day shift: Pt was seen by Dr Katz this AM. Small bowel FF was ordered and Pt in the process of this imaging. He is tolerating it well. He had a large BM at approx [address] Roman informed. Pt sleeping now. He has been calm and cooperative with car. Denies any chest pain. Also denies any nausea or generalized pain. Steady on his feet. IV fluid infusing per APR. Call light in reach.
--- NOTE | 2020-08-31 16:14 | CM.DANOTE ---
DCP ASSESSMENT: Patient is an 84 year-old male admitted for a small bowel obstruction. PCP is Osman Levine. Primary payer is 1) [employer] [facility] and 2)Self-pay. Patient pending small bowel follow through. FELIX Student met with patient at bedside, he is alert and oriented. Educated patient on role of social work in discharge planning. Patient reported he lives with his and is independent at baseline including driving and all ADL?s. Patient declined use of any adaptive devices. Patient prefers to return home with Sal who will provide transportation at time of D/C. PLAN: Anticipate D/C home when medically stable, pending small bowel follow through. CM Team to continue to follow. FELIX Astorga MSW Student Discharge Planning/Care Management CM Discharge Assessment Start: 08/31/20 11:47 Freq: Status: Active Protocol: Document 08/31/20 11:48 AL (Rec: 08/31/20 11:49 AL [id number]) Discharge Planning Assessment Assigned Parts Washer FELIX Ugarte Contact Information Matthew Huang Advance Directives? No Advance Directives on File No History Provided By Patient,Medical Record Has Patient been admitted in last 30 No days? Prior Living Arrangements House Household Members spouse Type of transporation used prior to Drives own vehicle admit Independent with ADL's Yes Is patient alert and oriented? Yes Caregiver for Another No Barriers to Discharge No Discharge Plan Home Transportation Arrangement Matthew Huang will provide transportation Referrals Initiated None needed Whiteboard Updated in Patient Room with Yes name and ext. # of Parts Washer Review Status In Process
[2020-09-01 00:25] VITALS: BP 154/65; PULSE 69; RESP 18; TEMP 36.6; O2SAT 94
--- NOTE | 2020-09-01 00:38 | PC.NURSE ---
Patient is alert and oriented. [place] w/use of bilateral hearing aids. Breath sounds CTA with RA sat of 94%. HRR. BP elevated at 154/65; currently not on BP meds and normally takes triamterene/HCTZ but has not been on as has been NPO. Denies nausea. BT present and is now passing liquid stools following SBFT yesterday. Denies dysuria, frequency or urgency with urination. Denies pain. Able to turn self in bed. Up to bathroom with SBA. Declines use of SCD's so reminded to ankle wave when awake. States he thinks he has probably fallen in past 3 months so fall risk score is high and bed alarm is activated. Evening rigger up patient's diet to full liquid for breakfast as tolerated clear liquid diet on evenings.
[2020-09-01 05:20] VITALS: BP 147/63; PULSE 65; RESP 18; TEMP 36.1; O2SAT 94
[2020-09-01 05:59] LABS: BUN Creatinine Ratio 22.9 (6-22); Blood Urea Nitrogen 16 mg/dL (9-20); Calcium 8.4 mg/dL (8.4-10.2); Carbon Dioxide 30 mmol/L (22-32); Chloride 102 mmol/L (98-107); Estimated Glomerular Filt Rate > 60.0 mL/min (>60); Glucose 86 mg/dL (80-110); HEMOLYSIS 19 (0-50); Potassium 3.3 mmol/L (3.4-5.1); Sodium 137 mmol/L (137-145)
[2020-09-01 07:38] VITALS: O2SAT 95
[2020-09-01 08:27] VITALS: BP 145/63; PULSE 65; RESP 16; TEMP 35.8; O2SAT 96
[2020-09-01] MEDS: ENOXAPARIN 40 MG/0.4 ML SYRINGE SUBCUT (08:34)
--- NOTE | 2020-09-01 08:54 | PM.PN.1 ---
Subjective Subjective Date Patient Seen: 09/01/20 Time Patient Seen: 08:54 Interval history: BM and flatus overnight. Tolerating diet Exam Vital Signs (past 8 hours): - 09/01/20 05:20 09/01/20 07:38 09/01/20 08:27 Temperature 96.9 F L 96.5 F L Pulse Rate 65 65 Respiratory Rate 18 16 Blood Pressure 147/63 H 145/63 H Pulse Oximetry 94 95 96 Oxygen Delivery Method Room Air Oxygen Flow Rate 0 Narrative Exam Narrative: Gen-Adult male no acute distress Abd-Soft, compressible non tender. Objective Labs Result Diagrams: 08/31/20 05:15 09/01/20 05:15 Labs: Laboratory Results - last 24 hr 09/01/20 05:15 Sodium 137 Potassium 3.3 L Chloride 102 Carbon Dioxide 30 BUN 16 Creatinine 0.70 Estimated GFR > 60.0 BUN/Creatinine Ratio 22.9 H Glucose 86 Calcium 8.4 PFSH Medical History Ankylosing spondylitis (~1969) Cataracts, bilateral Chicken pox (~1944) Diverticular disease Fractures Hearing loss Hypertension Kidney stones Measles (~1939) Mumps (~193) Partial blindness (~193) Prostate cancer Stiff neck Tinnitus Vision disorder Well adult exam Surgical History Anesthesia History of cataract removal with insertion of prosthetic lens (~2013) History of eye surgery (~2004) History of lithotripsy (~1996) History of prostatectomy (~2003) History of shoulder surgery (~1953) History of tonsillectomy (~194) Family History Brother Diabetes mellitus Father Cancer Grandmother Cancer Mother Cancer Sister Cancer Social History household members: spouse Smoking Status: Former smoker Tobacco: How many years used: 16 alcohol intake: current substance use type: does not use Assessment & Plan Assessment & Plan narrative: 84M hx of prostatectomy admitted for SBO now resolved. Small bowel follow through reviewed contrast within the rectum. Has return of bowel function tolerating diet. Ok to discharge from surgical perspective. No follow up necessary. Quality VTE Deep Vein Thrombosis/Pulmonary Embolism Present on Admission: No
--- NOTE | 2020-09-01 12:09 | CM.MNRNOTE ---
Day shift: Paperwork signed and all questions answered. Pt's spouse is driving him home. Taken to car in by DENA Freeman. No new MD scripts. Pt had no pain or nausea today. Left unit at approx 1215. Pt has all personal belongings.
--- NOTE | 2020-09-01 15:33 | PM.DS.1 ---
History of Present Illness History of Present Illness Chief complaint: nausea Narrative: Mr. Baugh is an 84M with PMH ankylosing spondylitis, HTN, diet controlled DM, history of prostate cancer s/p prostatectomy, who comes in with abdominal pain, nausea and vomiting. He states his symptoms began six days ago, last Monday, where his stomach felt funny. He then developed vomiting, abdominal pain and nausea. He has had intermittent diarrhea, but last bowel movement was two days ago. He has decreased appetite. No fevers/chills. No abdominal surgeries. No significant weight loss. Because of this he went to a walk in clinic who sent him to the hospital. In the ED, vitals were normal aside from hypertension. Labs notable for WBC 9.6, Na 127, creatinine 0.87, lactate 1.0, LFTs unremarkable, lipase normal, UA unremarkable. CT scan of his abdomen noted that his proximal small bowel is distended with fluid with a transition point in the mid abdomen with focal bowal wall edema, and a hyperdensity noted which was consistent with obstruction. He was made NPO given IV fluids, pain medications, surgery was consulted and he was admitted for further treatment. Discharge Providers Provider Date of admission: 08/30/20 15:30 Discharge Date: 09/01/20 Primary care physician: Osman Levine DO Consults: 08/30/20 15:24 Consult to General Surgery Stat Comment: Consulting Provider: Arlyn Alegria Reason for consultation: SOB Has provider been notified: Yes Discharge provider: Naga Roman MD Summary Hospital Course Discharge Diagnosis: 1. Acute small bowel obstruction 2. Ankylosing spondylitis, chronic 3. HTN 4. Type 2 DM, diet controlled 5. h/o prostate cancer, s/p prostatectomy Hospital Course: Mr. Baugh presented with abdominal pain, nausea and vomtiing and was found to have a small bowel obstruction. He had IF fluids, bowel rest, and then underwent small bowel follow through which showed no acute obstruction. He began having bowel movements and his symptoms resolved. Most likely he had adhesions causing these symptoms. He was followed by surgery. He was advised that his symptoms could possibly reoccur in the future. He was discharged tolerating a regular diet with no symptoms. Exam Vital Signs (past 8 hours): - 09/01/20 07:38 09/01/20 08:27 Temperature 96.5 F L Pulse Rate 65 Respiratory Rate 16 Blood Pressure 145/63 H Pulse Oximetry 95 96 Oxygen Delivery Method Room Air Oxygen Flow Rate 0 Narrative Exam Narrative: EN: no acute distress HEENT: PERRL, moist mucous membranes NECK: no JVD, trachea midline CV: regular rate and rhythm with no murmurs PULM: clear bliaterally with no wheezes, rhonchi, rales ABD: soft, not distended, nontender, no rebound/guarding, bowel sounds normal EXT: warm and well perfused with no edema SKIN: no rashes noted NEURO: awake alert and oriented x3, moving all extremities and no gross focal deficits noted PSYCH: pleasant, cooperative Objective Labs Result Diagrams: 08/31/20 05:15 09/01/20 05:15 Labs: Laboratory Results - last 24 hr 09/01/20 05:15 Sodium 137 Potassium 3.3 L Chloride 102 Carbon Dioxide 30 BUN 16 Creatinine 0.70 Estimated GFR > 60.0 BUN/Creatinine Ratio 22.9 H Glucose 86 Calcium 8.4 PFSH Medical History Ankylosing spondylitis (~1969) Cataracts, bilateral Chicken pox (~1944) Diverticular disease Fractures Hearing loss Hypertension Kidney stones Measles (~1939) Mumps (~193) Partial blindness (~193) Prostate cancer Stiff neck Tinnitus Vision disorder Well adult exam Surgical History Anesthesia History of cataract removal with insertion of prosthetic lens (~2013) History of eye surgery (~2004) History of lithotripsy (~1996) History of prostatectomy (~2003) History of shoulder surgery (~1953) History of tonsillectomy (~194) Family History Brother Diabetes mellitus Father Cancer Grandmother Cancer Mother Cancer Sister Cancer Social History household members: spouse Smoking Status: Former smoker Tobacco: How many years used: 16 alcohol intake: current substance use type: does not use Discharge Plan Discharge Plan Patient Disposition: Home Provider Discharge Comment: Mr. Baugh came in with abdominal pain and nausea. He had a blockage in his intestine, called a small bowel obstruction. This improved on its own. He did not need surgery. Please follow up with your PCP in the next 1-2 weeks. Discharge orders & Medications Prescriptions: Continued triamterene-hydrochlorothiazid 37.5-25 mg tablet 1 tab PO DAILY Qty: 90 RF: 1 turmeric See Rx Instructions .ROUTE .COMPLEX RF: 0 Follow up/Referrals: Osman Levine, [Primary Care Provider] - Diet/Activity/Treatments Diet: Regular Visit Report/Discharge Packet Instructions: DI for Small Bowel Obstruction, How to Prevent Falls Discharge Data Primary Care Provider: Osman Levine Quality VTE Deep Vein Thrombosis/Pulmonary Embolism Present on Admission: No MIPS - DC The patient has current or prior documentation of left ventricular ejection fraction (LVEF) less than 40%, or moderate or severely depressed left ventricular systolic function.: No
== END 2020-09-01 12:20 | disposition home or self-care (01) | DRG 390 ==
LOC: ED 15:29 → AC 15:31
PROVIDERS: Admitting Provider Internal Medicine; Emergency Provider Emergency Medicine; Family Provider Family Medicine; PCP Family Medicine; Referring Provider Emergency Medicine; Visit Provider Internal Medicine
DX: K56.50 Intestinal adhesions [bands], unspecified as to partial versus complete obstruction (principal); M45.9 Ankylosing spondylitis of unspecified sites in spine; I10 Essential (primary) hypertension; E11.9 Type 2 diabetes mellitus without complications; Z20.822 Contact with and (suspected) exposure to COVID-19; Z87.891 Personal history of nicotine dependence
CPT/HCPCS: 36415; 74177; 74250; 80048; 80053; 81003; 82550; 82962; 83605; 83690; 84484; 85025; 87635; 93005; 93010; 96360; 96361; 99231; 99232; 99284; C9803; J1650; Q9967

== ENCOUNTER → 2021-02-23 07:32 | Outpatient (CLI) | payer BC, SELFPAY ==
[2020-08-30 18:38] VITALS: BMI 27.1
[2021-02-23 08:07] LABS: Hemoglobin A1C% w Est Avg Glu 6.2 % (4.0-6.0)
[2021-02-23 08:13] LABS: Alanine Aminotransferase 23 IU/L (<50); Albumin 3.9 g/dL (3.5-5.0); Albumin Globulin Ratio 1.4 (1.0-2.8); Alkaline Phosphatase 55 U/L (38-126); Aspartate Aminotransferase 31 IU/L (17-59); BUN Creatinine Ratio 26.7 (6-22); Blood Urea Nitrogen 23 mg/dL (9-20); Calcium 9.5 mg/dL (8.4-10.2); Carbon Dioxide 32 mmol/L (22-32); Chloride 101 mmol/L (98-107); Estimated Glomerular Filt Rate > 60.0 mL/min (>60); Globulin 2.7 g/dL (1.7-4.1); Glucose 125 mg/dL (80-110); HEMOLYSIS < 15 (0-50); Potassium 3.7 mmol/L (3.4-5.1); Sodium 137 mmol/L (137-145); Total Protein 6.6 g/dL (6.3-8.2)
== END ==
PROVIDERS: Family Provider Family Medicine; PCP Family Medicine; Referring Provider Family Medicine; Visit Provider Family Medicine
DX: E11.9 Type 2 diabetes mellitus without complications (principal); I10 Essential (primary) hypertension
CPT/HCPCS: 36415; 80053; 83036

== ENCOUNTER → 2022-05-03 17:23 | Outpatient (CLI) | payer BC, SELFPAY ==
[2020-08-30 18:38] VITALS: BMI 27.1
[2022-05-03 17:45] LABS: Add Manual Diff / Slide Review NO; Basophils Absolute Auto 100 /uL (0-100); Eosinophils Absolute Auto 200 /uL (0-450); Eosinophils Percent Auto 2.2 % (2-4); Hemoglobin 15.5 g/dL (13.5-17.5); Lymphocytes Absolute Auto 1800 /uL (1100-4500); Lymphocytes Percent Auto 21.2 % (25-40); Mean Corpuscular HGB Conc 35.3 % (30-36); Mean Corpuscular Hemoglobin 31.2 PG (26-34); Mean Corpuscular Volume 88.5 fL (80-100); Monocytes Absolute Auto 800 /uL (0-900); Monocytes Percent Auto 9.3 % (3-14); Neutrophils Absolute Auto 5600 /uL (1500-7000); Neutrophils Percent Auto 66.3 % (50-75); Platelet Count 238 X10^3/uL (150-400); Red Blood Cell Count 4.98 X10^6/uL (4.5-5.9); Red Cell Distribution Width 13.1 % (11.6-14.8); White Blood Cell Count 8.4 X10^3/uL (4.5-11.0)
[2022-05-03 18:15] LABS: Alanine Aminotransferase 24 IU/L (<50); Albumin 4.2 g/dL (3.5-5.0); Albumin Globulin Ratio 1.3 (1.0-2.8); Alkaline Phosphatase 67 U/L (38-126); Aspartate Aminotransferase 28 IU/L (17-59); BUN Creatinine Ratio 15.3 (6-22); Bilirubin Total 0.6 mg/dL (0.2-1.3); Blood Urea Nitrogen 19 mg/dL (9-20); Calcium 9.4 mg/dL (8.4-10.2); Carbon Dioxide 33 mmol/L (22-32); Chloride 98 mmol/L (98-107); Estimated Glomerular Filt Rate 56 mL/min (>60); Globulin 3.2 g/dL (1.7-4.1); Glucose 117 mg/dL (80-110); HEMOLYSIS < 15 (0-50); Potassium 3.9 mmol/L (3.4-5.1); Sodium 139 mmol/L (137-145); Total Protein 7.4 g/dL (6.3-8.2)
[2022-05-03 19:19] LABS: Prostate Specific Antigen < 0.064 ng/mL (0.10-4.00)
== END ==
PROVIDERS: Family Provider Family Medicine; PCP Family Medicine; Referring Provider Family Medicine; Visit Provider Family Medicine
DX: E11.9 Type 2 diabetes mellitus without complications (principal); I10 Essential (primary) hypertension
CPT/HCPCS: 36415; 80053; 84153; 85025